=== PATIENT | female | born 1960 | race African-American/Black ===

== ENCOUNTER 2017-12-30 17:12 | Emergency (ER) | payer SELFPAY ==
[~2017-12-30] VITALS: Ht 157.5 cm; Wt 65.0 kg
[2017-12-30 21:38] VITALS: BP 127/74
== END 2017-12-30 22:32 | disposition home or self-care (01) ==
LOC: ER 17:53
DX: G47.00 Insomnia, unspecified (principal); Z88.0 Allergy status to penicillin
CPT/HCPCS: 99281

== ENCOUNTER 2017-12-31 12:48 | Emergency (ER) | payer SELFPAY | END 2017-12-31 18:29 | disposition left against medical advice (07) | LOC: ER 16:21 | DX: Z53.21 Procedure and treatment not carried out due to patient leaving prior to being seen by health care provider (principal) ==